=== PATIENT | male | born 1985 | race Caucasian/White ===

== ENCOUNTER 2016-08-16 23:28 | Emergency (ER) | payer MEDICAID, OTHER ==
[~2016-08-16] VITALS: Ht 182.9 cm; Wt 77.1 kg
--- NOTE | 2016-08-16 23:35 | NUR ---
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 Patient is aaox4, ambulatory, reported a "burning sensation on the epigastric area after eating fish." VSS. nondiaphoretic. Gowned. Initiated comfort measures. Awaiting for er md rosario.
[2016-08-16] MEDS ORDERED: MAG HYDROX/AL HYDROX/SIMETH 30 ML UDC ONE (23:52)
[2016-08-16] MEDS ORDERED: ONDANSETRON 4 MG TAB.RAPDIS ONE (23:52)
[2016-08-17] MEDS ORDERED: ONDANSETRON 4 MG TAB.RAPDIS SL ONE
[2016-08-17] MEDS ORDERED: MAG HYDROX/AL HYDROX/SIMETH 30 ML UDC PO ONE
--- NOTE | 2016-08-17 00:01 | NUR ---
meds given as ordered by Dr Díaz.
--- NOTE | 2016-08-17 00:36 | NUR ---
Patient discharged to home in stable condition. Written and verbal after care instructions given. Patient verbalizes understanding of instruction. Patient is ambulatory with steady gait.
[2016-08-17 00:37] VITALS: BP 130/82
== END 2016-08-17 00:38 | disposition home or self-care (01) ==
LOC: ER 23:30
DX: K21.9 Gastro-esophageal reflux disease without esophagitis (principal); F11.20 Opioid dependence, uncomplicated; M54.9 Dorsalgia, unspecified; G89.29 Other chronic pain; F17.200 Nicotine dependence, unspecified, uncomplicated; F41.9 Anxiety disorder, unspecified; F32.9 Major depressive disorder, single episode, unspecified
CPT/HCPCS: 99283; A4606; Q0162; Z7610

== ENCOUNTER 2017-02-09 11:58 | Emergency (ER) | payer OTHER ==
[~2017-02-09] VITALS: Ht 190.5 cm; Wt 90.7 kg
[2017-02-09 12:07] VITALS: BP 131/76
[2017-02-09] MEDS ORDERED: ALBUTEROL FS 2.5 MG/3 ML VIAL.NEB NEB ONE (12:30)
[2017-02-09] MEDS ORDERED: ALBUTEROL FS 2.5 MG/3 ML VIAL.NEB ONE (12:32)
== END 2017-02-09 13:07 | disposition home or self-care (01) ==
LOC: ER 12:00
DX: J45.901 Unspecified asthma with (acute) exacerbation (principal); B35.3 Tinea pedis; K12.0 Recurrent oral aphthae; G89.29 Other chronic pain; M54.9 Dorsalgia, unspecified; F41.9 Anxiety disorder, unspecified; F32.9 Major depressive disorder, single episode, unspecified; F17.200 Nicotine dependence, unspecified, uncomplicated
CPT/HCPCS: 94640; 99283; A4606; Z7610